=== PATIENT | male | born 1940 | race Caucasian/White ===

== ENCOUNTER 2017-05-09 13:09 | Observation (INO) | payer MEDICARE, BC ==
[~2017-05-09] VITALS: Ht 170.2 cm; Wt 82.1 kg
[~2017-05-09 13:09] MED LIST: ATAC32TA4 PO; ATOR40TA49 PO; NITR.4 SL; PLAV75TA PO; PRIL20CA PO; ST J81CH PO; TAB-TAB PO; VERA120T3 PO; VITA100T65 PO
[2017-05-09] MEDS ORDERED: IOHEXOL 350 MG/ML 10 ML VIAL (for RAD DIAG) IVCONTRAST ONE (13:10)
[2017-05-09 13:12] VITALS: BP 165/87; PULSE 86; RESP 17; TEMP 98.4; O2SAT 96
--- NOTE | 2017-05-09 13:25 | PD ---
Physical Exam Date Seen by Provider: May 09, 2017 Time Seen by Provider: 13:21 Narrative 76 YOWM R HAND DOMINANT. PLAVIX. FELL OFF HORSE SATURDAY. L PROXIMAL HUMERUS FX VS NOTED WAITING FOR BED PLACEMENT Data Data Last Documented VS Vital Signs Date Time Temp Pulse Resp B/P (MAP) Pulse Ox O2 Delivery O2 Flow Rate FiO2 05/09/17 13:12 98.4 86 17 165/87 (113) 96 Room Air MDM Medical Record Reviewed: No Supervised Visit with ALVARADO: Yes Dayron Galo May 09, 2017 13:25
--- NOTE | 2017-05-09 14:09 | RADRPT ---
EXAM DATE/TIME: 05/09/2017 13:47 [facility] COMPARISON: No previous studies available for comparison. INDICATIONS : Left shoulder pain, fell MEDICAL HISTORY : Aneurysm, abdominal. Cardiovascular disease SURGICAL HISTORY : Abdominal aortic aneurysm repair ENCOUNTER: Initial ACUITY: 4 - 6 days PAIN SCORE: 9/10 LOCATION: Right Shoulder FINDINGS: There is a complete fracture of the left proximal humerus with overriding of the metaphysis with resp ect to the humeral head. The humeral head is rotated, however not dislocated. CONCLUSION: Left proximal humeral fracture. Norma Damon MD on May 09, 2017 at 14:07 Board Certified Radiologist. This report was verified electronically.
[2017-05-09] MEDS ORDERED: OMEP20TA PO (15:03)
[2017-05-09] MEDS ORDERED: PLAV75TA29 PO (15:03)
[2017-05-09] MEDS ORDERED: ATAC16TA4 PO (15:03)
[2017-05-09] MEDS ORDERED: VERA1TAB17 PO (15:03)
[2017-05-09] MEDS ORDERED: ASPI81TA11 PO (15:03)
[2017-05-09] MEDS ORDERED: CELE50CA PO (15:03)
[2017-05-09] MEDS ORDERED: MULTTAB67 PO (15:03)
--- NOTE | 2017-05-09 15:04 | PD ---
HPI Chief Complaint: Injury Time Seen by Provider: 14:50 Travel History International Travel<30 days: No Contact w/Intl Traveler<30days: No Traveled to known affect area: No History of Present Illness HPI This is a 76-year-old male and Plavix and aspirin, history of coronary artery disease, stable AAA, hypertension, hyperlipidemia, presents for evaluation of left shoulder pain and lower back pain. He reports that 4 days ago he was in [place] and he was bucked off of a horse. He landed on his left shoulder. He was seen at an emergency room in [place] where CT of the brain and left shoulder x-ray were performed. Left shoulder x-ray revealed a proximal humeral fracture. He was told that the only orthopedist in the [facility] was out of town and when he returned here this morning he came here for further evaluation and likely orthopedic consultation for his injury. He is complaining of left shoulder pain and lower back pain which is aching and constant and worse with movement. He is denying any shortness of breath. He reports that he had slight left-sided neck pain 4 days ago but that has resolved. He denies any abdominal pain, numbness or tingling or weakness in the arms or legs. He was prescribed Percocet but it has been making him nauseous so he has been avoiding it. He has no other complaints at this time. PFSH Past Medical History Hx Anticoagulant Therapy: Yes (plavix) AAA: Yes Arthritis: Yes Cardiac Catheterization: Yes (STENTS PLACED X 2) Cardiovascular Problems: Yes (2 stents/triple AAA repair) Hypertension: Yes Influenza Vaccination: Yes Past Surgical History Abdominal Surgery: Yes (AAA REPAIR) Tonsillectomy: Yes Social History Alcohol Use: Yes (1-2 DRINKS DAILY) Tobacco Use: No Substance Use: No Allergies-Medications (Allergen,Severity, Reaction): Coded Allergies: amoxicillin (Verified Allergy, Intermediate, HIVES / RASH / SKIN PEELING, 05/09/17) Reported Meds & Prescriptions Reported Meds & Active Scripts Active Reported Celebrex (Celecoxib) 50 Mg Cap 50 Mg PO DAILY PRN Verapamil ER 24 HR (Verapamil HCl) 240 Mg Tab 120 Mg PO DAILY Omeprazole 20 Mg Tab 20 Mg PO DAILY Multiple Vitamin 1 Tab 1 Tab PO DAILY Plavix (Clopidogrel Bisulfate) 75 Mg Tab 75 Mg PO DAILY Atacand Hct (Candesartan-Hydrochlorothiazide) 16-12.5 Mg Tab 1 Tab PO DAILY Aspirin EC (Aspirin) 81 Mg Tabdr 81 Mg PO DAILY Review of Systems Except as stated in HPI: all other systems reviewed are Neg Physical Exam Narrative GENERAL: Pleasant well-developed well-nourished male in no acute distress. His vital signs reviewed and found to be reassuring. SKIN: Warm and dry. Large degree of of ecchymosis along the left anterior lateral chest wall and around the left shoulder joint. There is an abrasion to the posterior left elbow. HEAD: Atraumatic. Normocephalic. EYES: Pupils equal and round. No scleral icterus. No injection or drainage. ENT: No nasal bleeding or discharge. Mucous membranes pink and moist. NECK: Trachea midline. No JVD. CARDIOVASCULAR: Regular rate and rhythm. No murmur appreciated. RESPIRATORY: No accessory muscle use. Clear to auscultation. Breath sounds equal bilaterally. GASTROINTESTINAL: Abdomen soft, non-tender, nondistended. Hepatic and splenic margins not palpable. MUSCULOSKELETAL: Tenderness to palpation to the left shoulder joint. The patient is holding his left shoulder in internal rotation in a sling. There is some tenderness to palpation along the lumbar midline spine. No tenderness to palpation along the cervical or thoracic midline spine. No chest wall crepitus. There is some point tenderness to palpation in the posterior left elbow as well as olecranon bursal swelling. Nonerythematous. NEUROLOGICAL: Awake and alert. No obvious cranial nerve deficits. Motor grossly within normal limits. Normal speech. Data Data Last Documented VS Vital Signs Date Time Temp Pulse Resp B/P (MAP) Pulse Ox O2 Delivery O2 Flow Rate FiO2 05/09/17 18:27 73 16 173/78 (109) 96 Room Air 05/09/17 13:12 98.4 Orders Orders Shoulder, Limited(2vws) (05/09/17 13:34) Basic Metabolic Panel (Bmp) (05/09/17 14:57) Complete Blood Count With Diff (05/09/17 14:57) Prothrombin Time / Inr (Pt) (05/09/17 14:57) Act Partial Throm Time (Ptt) (05/09/17 14:57) Ct Thorax/ Chest W Iv Contrast (05/09/17 14:57) Spine, Lumbar - Ltd (Ap & Lat) (05/09/17 ) Iv Access Insert/Monitor (05/09/17 14:57) Tetanus/Diphtheria Tox Adult (Tetanus/Di (05/09/17 15:45) Elbow, Limited (Ap&Lat) (05/09/17 ) Iohexol 350 Inj (Omnipaque 350 Inj) (05/09/17 13:10) Ct Elbow W/O Contrast (05/09/17 ) Ct Shoulder W/O Contrast (05/09/17 ) Morphine Inj (Morphine Inj) (05/09/17 18:30) Ondansetron Inj (Zofran Inj) (05/09/17 18:30) Ice/Cold Pack (05/09/17 18:23) Admit Order (Ed Use Only) (05/09/17 19:04) Labs Laboratory Tests Test 05/09/17 15:40 05/09/17 16:10 White Blood Count 9.5 TH/MM3 Red Blood Count 3.65 MIL/MM3 Hemoglobin 9.9 GM/DL Hematocrit 30.2 % Mean Corpuscular Volume 82.8 FL Mean Corpuscular Hemoglobin 27.1 PG Mean Corpuscular Hemoglobin Concent 32.8 % Red Cell Distribution Width 17.7 % Platelet Count 340 TH/MM3 Mean Platelet Volume 6.8 FL Neutrophils (%) (Auto) 69.9 % Lymphocytes (%) (Auto) 18.1 % Monocytes (%) (Auto) 7.7 % Eosinophils (%) (Auto) 3.5 % Basophils (%) (Auto) 0.8 % Neutrophils # (Auto) 6.6 TH/MM3 Lymphocytes # (Auto) 1.7 TH/MM3 Monocytes # (Auto) 0.7 TH/MM3 Eosinophils # (Auto) 0.3 TH/MM3 Basophils # (Auto) 0.1 TH/MM3 CBC Comment DIFF FINAL Differential Comment Blood Urea Nitrogen 27 MG/DL Creatinine 1.47 MG/DL Random Glucose 98 MG/DL Calcium Level 9.0 MG/DL Sodium Level 138 MEQ/L Potassium Level 3.8 MEQ/L Chloride Level 106 MEQ/L Carbon Dioxide Level 24.6 MEQ/L Anion Gap 7 MEQ/L Estimat Glomerular Filtration Rate 46 ML/MIN Prothrombin Time 10.9 SEC Prothromb Time International Ratio 1.0 RATIO Activated Partial Thromboplast Time 26.8 SEC MDM Medical Decision Making Medical Screen Exam Complete: Yes Emergency Medical Condition: Yes Medical Record Reviewed: Yes Differential Diagnosis Proximal humeral fracture, chest wall contusion, lumbar compression fracture, rib fracture, pneumothorax, hemothorax, vascular injury Narrative Course 76-year-old male presents after being bucked off of a horse 4 days ago with left shoulder pain and lower back pain as well as left elbow pain. On examination he has a large degree of ecchymosis on the anterior left chest wall and left shoulder or the left shoulder x-ray reveals a proximal humeral fracture with shortening. He has some tenderness to palpation along the lumbar spine, some tenderness to palpation to the posterior left elbow. Plan is for CT of the thorax as well as lumbar spine x-ray, left elbow x-ray. CT of the thorax reveals a right middle lobe nodule with additional scarring in the lungs, repeat noncontrast chest CT is suggested in 6 months. The patient be given a copy of the CT report in order to follow-up with his primary care physician regarding this incidental finding. The patient is actually where of this finding and has been monitored for several years. I discussed the results of the imaging studies with on-call orthopedist Dr. Pena who would like CT imaging of the left shoulder and elbow prior to discharge. He reports that the patient has 2 options: The first option is that the patient can be discharged with sling, outpatient follow-up in his office on Saturday or Saturday of next week likely for outpatient surgery. The other option is that the patient can be admitted to medicine service with consultation to orthopedist Dr. Griffin however there are no guarantees at a timely operative repair. I discussed these options in detail with the patient and his and the patient is adamant that he would prefer to be admitted for inpatient orthopedic consultation at this time. He does not want to be discharged to follow-up next week. Therefore the patient will be admitted to the hospitalist group with orthopedic consultation. Diagnosis Primary Impression: Closed fracture of left proximal humerus Qualified Codes: S42.292A - Other displaced fracture of upper end of left humerus, initial encounter for closed fracture Additional Impression: Olecranon bursitis, left elbow Admitting Information Admitting Physician Requests: it Srikanth Luna May 09, 2017 15:04
[2017-05-09] MEDS ORDERED: TETANUS/DIPHTHERIA TOXOID ADULT 0.5 ML VIAL IM ONE (15:45)
[2017-05-09 15:55] LABS: AUTOMATED NEUTROPHIL # 6.6 TH/MM3 (1.8-7.7); BASOPHIL # 0.1 TH/MM3 (0-0.2); BASOPHIL % 0.8 % (0.0-2.0); EOSINOPHIL # 0.3 TH/MM3 (0-0.4); EOSINOPHIL % 3.5 % (0.0-4.0); HEMATOCRIT 30.2 % (39.0-51.0); HEMO FLAGS DIFF FINAL; LYMPH % 18.1 % (9.0-44.0); LYMPHOCYTE # 1.7 TH/MM3 (1.0-4.8); MEAN CELL VOLUME 82.8 FL (80.0-100.0); MEAN CORPUSCULAR HEMOGLOBIN 27.1 PG (27.0-34.0); MEAN CORPUSCULAR HGB CONC 32.8 % (32.0-36.0); MONO % 7.7 % (0.0-8.0); NEUT % 69.9 % (16.0-70.0); PLATELET COUNT 340 TH/MM3 (150-450); RED BLOOD COUNT 3.65 MIL/MM3 (4.50-5.90); RED CELL DISTRIBUTION WIDTH 17.7 % (11.6-17.2); WHITE BLOOD COUNT 9.5 TH/MM3 (4.0-11.0)
--- NOTE | 2017-05-09 16:02 | RADRPT ---
EXAM DATE/TIME: 05/09/2017 15:31 [facility] COMPARISON: No previous studies available for comparison. INDICATIONS : Low back pain, fell MEDICAL HISTORY : Aneurysm, abdominal. Cardiovascular disease SURGICAL HISTORY : Abdominal aortic aneurysm repair ENCOUNTER: Initial ACUITY: 4 - 6 days PAIN SCORE: 0/10 LOCATION: Lumbar spine FINDINGS: No appreciable compression deformities, spondylolisthesis, or spondylolysis is seen. Slight degenera tive changes are seen within the disc space and facets. Chronic atherosclerotic calcifications are se en without any definite aneurysmal dilatations for technique. Aortobiiliac stent is identified. CONCLUSION: Chronic changes. Norma Damon MD on May 09, 2017 at 16:00 Board Certified Radiologist. This report was verified electronically.
--- NOTE | 2017-05-09 16:09 | RADRPT ---
EXAM DATE/TIME: 05/09/2017 15:48 [facility] COMPARISON: No previous studies available for comparison. INDICATIONS : Left elbow pain, thrown from a horse MEDICAL HISTORY : None. SURGICAL HISTORY : None. ENCOUNTER: Initial ACUITY: 1 day PAIN SCORE: 2/10 LOCATION: Left elbow FINDINGS: No definite fractures, or dislocations are identified. No definite lytic or sclerotic lesion is seen . CONCLUSION: Unremarkable study. Norma Damon MD on May 09, 2017 at 16:08 Board Certified Radiologist. This report was verified electronically.
[2017-05-09 16:25] LABS: BICARBONATE 24.6 MEQ/L (21.0-32.0); POTASSIUM 3.8 MEQ/L (3.5-5.1)
[2017-05-09 16:33] LABS: APTT (PATIENT) 26.8 SEC (24.3-30.1); PROTHROMBIN TIME - PATIENT 10.9 SEC (9.8-11.6)
--- NOTE | 2017-05-09 17:45 | RADRPT ---
EXAM DATE/TIME: 05/09/2017 17:20 [facility] COMPARISON: No previous studies available for comparison. INDICATIONS : Chest pains from fall off horse. IV CONTRAST: 75 cc Omnipaque 350 (iohexol) IV RADIATION DOSE: 6.53 CTDIvol (mGy) MEDICAL HISTORY : Cardiovascular disease. SURGICAL HISTORY : Abdominal aortic aneurysm repair. Coronary artery stent. ENCOUNTER: Initial ACUITY: 4 - 6 days PAIN SCALE: 10/10 LOCATION: Left chest TECHNIQUE: Volumetric scanning of the chest was performed. Using automated exposure control and adjustment of t he mA and/or kV according to patient size, radiation dose was kept as low as reasonably achievable to obtain optimal diagnostic quality images. DICOM format image data is available electronically for review and comparison. Follow-up recommendations for detected pulmonary nodules are based at a minimum on nodule size and pa tient risk factors according to Fleischner Society Guidelines. FINDINGS: Approximate 5 mm right middle lobe nodule is present with additional areas of scarring in right middl e lobe and lingula. There is a complex fracture of left proximal humerus which is displaced discussed on the patient's left shoulder radiographs. Coronary artery calcifications are seen typically seen w ith CAD and need to be evaluated clinically. There are atherosclerotic calcifications of the aorta du e to chronic atherosclerotic disease. No definite pneumothorax is seen for technique.There is no pleu ral effusion. No appreciable pathological adenopathy is seen within the mediastinum. CONCLUSION: 1. Right middle lobe nodule with additional scarring in the lungs, repeat noncontrast chest CT is sug gested in 6 months as a conservative follow up. 2. Left proximal humeral fracture. Norma Damon MD on May 09, 2017 at 17:39 Board Certified Radiologist. This report was verified electronically.
[2017-05-09 18:27] VITALS: BP 173/78; PULSE 73; RESP 16; O2SAT 96
[2017-05-09] MEDS ORDERED: ONDANSETRON HCL 4 MG/2 ML VIAL IV PUSH ONE (18:30)
[2017-05-09] MEDS ORDERED: MORPHINE SULFATE 4 MG/ML INJ IV PUSH ONE (18:30)
[2017-05-09] MEDS ORDERED: SODIUM CHLORIDE 0.9% FLUSH 10 ML FLUSH IV FLUSH PRN (20:15)
[2017-05-09] MEDS ORDERED: MORPHINE SULFATE 4 MG/ML INJ IV PUSH PRN (20:15)
[2017-05-09] MEDS ORDERED: NALOXONE HCL 0.4 MG/ML AMP IV PRN (20:15)
--- NOTE | 2017-05-09 20:16 | RADRPT ---
EXAM DATE/TIME: 05/09/2017 19:28 [facility] COMPARISON: ELBOW LEFT LIMITED (AP & LAT), May 09, 2017, 15:48. INDICATIONS : Left elbow pain post fall from horse. RADIATION DOSE: 28.83 CTDIvol (mGy) ; Patient positioning MEDICAL HISTORY : None SURGICAL HISTORY : None. ENCOUNTER: Initial ACUITY: 4 - 6 days PAIN SCALE: 7/10 LOCATION: Left elbow TECHNIQUE: Volumetric scanning of the elbow was performed. Using automated exposure control and adjustment of t he mA and/or kV according to patient size, radiation dose was kept as low as reasonably achievable to obtain optimal diagnostic quality images. DICOM format image data is available electronically for r eview and comparison. FINDINGS: BONES: No evidence of fracture. Alignment is within normal limits. JOINTS: No evidence of joint narrowing or effusion. SOFT TISSUES: Muscles, tendons and neurovascular structures are grossly unremarkable. Stranding subcutaneous soft t issues medially may represent direct contusion. No evidence of mass, organized fluid collection, or f oreign body. CONCLUSION: Soft tissue contusion. No fracture. Pedro Pablo Mc MD on May 09, 2017 at 20:13 Board Certified Radiologist. This report was verified electronically.
--- NOTE | 2017-05-09 20:20 | RADRPT ---
EXAM DATE/TIME: 05/09/2017 19:23 [facility] COMPARISON: SHOULDER LEFT LTD (2VWS), May 09, 2017, 13:47. ELBOW LEFT LIMITED (AP & LAT), May 09 17, 15:48. INDICATIONS : Left shoulder pain post fall from horse. RADIATION DOSE: 16.48 CTDIvol (mGy) MEDICAL HISTORY : None SURGICAL HISTORY : None. ENCOUNTER: Initial ACUITY: 4 - 6 days PAIN SCALE: 7/10 LOCATION: Left shoulder TECHNIQUE: Volumetric scanning of the shoulder was performed. Using automated exposure control and adjustment o f the mA and/or kV according to patient size, radiation dose was kept as low as reasonably achievable to obtain optimal diagnostic quality images. DICOM format image data is available electronically f or review and comparison. FINDINGS: BONES: CT confirms a comminuted displaced fracture through the left humeral head. JOINTS: No evidence of joint narrowing or effusion. SOFT TISSUES: Muscles, tendons, and neurovascular structures are grossly unremarkable. The integrity of the rotato r cuff tendons cannot be reliably evaluated on CT without intra-articular contrast. No evidence of m ass, organized fluid collection, or foreign body. CONCLUSION: 1. Comminuted and displaced fracture through the left humeral head. 2. No associated dislocation. Pedro Pablo Mc MD on May 09, 2017 at 20:15 Board Certified Radiologist. This report was verified electronically.
[2017-05-09] MEDS ORDERED: SODIUM CHLORIDE 0.9% FLUSH 10 ML FLUSH IV FLUSH SCH (21:00)
[2017-05-09 21:17] VITALS: BP 153/70; PULSE 70; RESP 16; O2SAT 97
--- NOTE | 2017-05-09 23:54 | HHI.HP ---
[facility] Tresa Beltran MD Admission Diagnosis left shoulder fracture Diagnoses: Chief Complaint: left shoulder fracture Travel History International Travel<30 Days: No Contact w/Intl Traveler <30 Da: No Traveled to Known Affected Are: No History of Present Illness Written by Cat Strong, acting as scribe for Dr. Suh on 05/09/17 at 23:53. The patient states he got "thrown off of a horse" in [place] on Saturday05/06/17. There was no orthopedic surgeon in the town in [place] so his arm was placed in a sling and he flew home. He was given Percocet which made him nauseated and he stopped it. He denies diarrhea, black or red stool, hematuria, dysuria, syncope, chest pain, or shortness of breath. Severe posterior left shoulder pain. Pain alleviated with IV Morphine, worse with movement. CT head was done in [place] because he takes Plavix. He continued Plavix following fall. Nurse Licensed Practical: Dr. Sargent Review of Systems Except as stated in HPI: all other systems reviewed are Neg Past Family Social History Past Medical History Hypertension CAD s/p stent x 2 AAA s/p repair Intermittently has "irregular heart beat" but denies atrial fibrillation Mellisa fever in childhood Arthritis COPD Denies diabetes mellitus, CHF, asthma, emphysema, liver problems, kidney problems, DVT, PE, CVA, seizures, thyroid problems, cancers, or prostate problems . Past Surgical History Tonsillectomy AAA repair - Dr. Blackwood Cardiac catheterization with stent placement . Reported Medications Reported Meds & Active Scripts Active Reported Celebrex (Celecoxib) 50 Mg Cap 50 Mg PO DAILY PRN Verapamil ER 24 HR (Verapamil HCl) 240 Mg Tab 120 Mg PO DAILY Omeprazole 20 Mg Tab 20 Mg PO DAILY Multiple Vitamin 1 Tab 1 Tab PO DAILY Plavix (Clopidogrel Bisulfate) 75 Mg Tab 75 Mg PO DAILY Atacand Hct (Candesartan-Hydrochlorothiazide) 16-12.5 Mg Tab 1 Tab PO DAILY Aspirin EC (Aspirin) 81 Mg Tabdr 81 Mg PO DAILY . Allergies: Coded Allergies: amoxicillin (Verified Allergy, Intermediate, HIVES / RASH / SKIN PEELING, 05/09/17) Active Ordered Medications Current Medications Tetanus/ Diphtheria Toxoids (Tetanus/ Diphtheria Tox Adult) 0.5 ml ONCE ONCE IM Last administered on 05/09/17 16:07; Start 05/09/17 at 15:45; Stop 05/09/17 at 15:46; Status DC Iohexol (Omnipaque 350 Inj) 75 ml STK-MED ONCE IVCONTRAST ; Start 05/09/17 at 13: 10; Stop 05/09/17 at 17:45; Status DC Morphine Sulfate (Morphine Inj) 4 mg ONCE ONCE IV PUSH Last administered on 18:33; Start 05/09/17 at 18:30; Stop 05/09/17 at 18:31; Status DC Ondansetron HCl (Zofran Inj) 4 mg ONCE ONCE IV PUSH Last administered on 18:33; Start 05/09/17 at 18:30; Stop 05/09/17 at 18:31; Status DC Sodium Chloride (NS Flush) 2 ml UNSCH PRN IV FLUSH FLUSH AFTER USING IV ACCESS ; Start 05/09/17 at 20:15 Sodium Chloride (NS Flush) 2 ml BID IV FLUSH Last administered on 05/09/17 22: 17; Start 05/09/17 at 21:00 Naloxone HCl (Narcan Inj) 0.4 mg UNSCH PRN IV SEE LABEL COMMENTS; Start at 20:15 Morphine Sulfate (Morphine Inj) 2 mg Q3H PRN IV PUSH PAIN >5 Last administered on 05/10/17 00:01; Start 05/09/17 at 20:15 . Family History Heart problems in family Lung problems in brother Sister from CVA, valvular heart disease . Social History Tobacco: quit 40 years ago; smoked 2 ppd previously Alcohol: occasional . Physical Exam Vital Signs Vital Signs Date Time Temp Pulse Resp B/P (MAP) Pulse Ox O2 Delivery O2 Flow Rate FiO2 05/09/17 21:57 05/09/17 21:17 70 16 153/70 (97) 97 Room Air 05/09/17 18:27 73 16 173/78 (109) 96 Room Air 05/09/17 13:12 98.4 86 17 165/87 (113) 96 Room Air Physical Exam GENERAL: This is an elderly male patient in no apparent distress. SKIN: No rashes. Cool and dry. Left upper arm and shoulder with extensive bruising noted. HEAD: Atraumatic. Normocephalic. No temporal or scalp tenderness. EYES: No scleral icterus. No injection or drainage. ENT: Nose without bleeding, purulent drainage. Airway patent. NECK: Trachea midline. No JVD. CARDIOVASCULAR: Regular rate and rhythm without murmurs, gallops, or rubs. RESPIRATORY: Clear to auscultation. Breath sounds equal bilaterally. No wheezes , rales, or rhonchi. GASTROINTESTINAL: Abdomen soft, non-tender, nondistended. MUSCULOSKELETAL: Extremities without clubbing, cyanosis, or edema. No calf tenderness. Left hand with intact sensation, warm. Left shoulder with extensive bruising and swelling. NEUROLOGICAL: Awake and alert. Motor and sensory grossly within normal limits. Normal speech. . Laboratory Laboratory Tests Test 05/09/17 15:40 05/09/17 16:10 White Blood Count 9.5 Red Blood Count 3.65 Hemoglobin 9.9 Hematocrit 30.2 Mean Corpuscular Volume 82.8 Mean Corpuscular Hemoglobin 27.1 Mean Corpuscular Hemoglobin Concent 32.8 Red Cell Distribution Width 17.7 Platelet Count 340 Mean Platelet Volume 6.8 Neutrophils (%) (Auto) 69.9 Lymphocytes (%) (Auto) 18.1 Monocytes (%) (Auto) 7.7 Eosinophils (%) (Auto) 3.5 Basophils (%) (Auto) 0.8 Neutrophils # (Auto) 6.6 Lymphocytes # (Auto) 1.7 Monocytes # (Auto) 0.7 Eosinophils # (Auto) 0.3 Basophils # (Auto) 0.1 CBC Comment DIFF FINAL Differential Comment Blood Urea Nitrogen 27 Creatinine 1.47 Random Glucose 98 Calcium Level 9.0 Sodium Level 138 Potassium Level 3.8 Chloride Level 106 Carbon Dioxide Level 24.6 Anion Gap 7 Estimat Glomerular Filtration Rate 46 Prothrombin Time 10.9 Prothromb Time International Ratio 1.0 Activated Partial Thromboplast Time 26.8 Result Diagram: 05/09/17 1540 05/09/17 1540 Imaging Last Impressions Chest CT 05/09/17 2836 Signed Impressions: Service Date/Time: May 17:20 - CONCLUSION: 1. Right middle lobe nodule with additional scarring in the lungs, repeat noncontrast chest CT is suggested in 6 months as a conservative follow up. 2. Left proximal humeral fracture. Norma Damon MD Shoulder X-Ray 05/09/17 1334 Signed Impressions: Service Date/Time: May 13:47 - CONCLUSION: Left proximal humeral fracture. Norma Damon MD Upper Extremity CT 05/09/17 0000 Signed Impressions: Service Date/Time: , May 09, 2017 19:23 - CONCLUSION: 1. Comminuted and displaced fracture through the left humeral head. 2. No associated dislocation. Pedro Pablo Mc MD Lumbar Spine X-Ray 05/09/17 0000 Signed Impressions: Service Date/Time: , May 09, 2017 15:31 - CONCLUSION: Chronic changes. Norma Damon MD Elbow X-Ray 05/09/17 0000 Signed Impressions: Service Date/Time: May 15:48 - CONCLUSION: Unremarkable study. Norma Damon MD . Caprini VTE Risk Assessment Caprini VTE Risk Assessment: Mod/High Risk (score >= 2) Caprini Risk Assessment Model Point Value = 1 Point Value = 2 Point Value = 3 Point Value = 5 Age 41-60 Minor surgery BMI > 25 kg/m2 Swollen legs Varicose veins or History of unexplained or recurrent spontaneous Oral contraceptives or hormone replacement Sepsis (< 1 month) Serious lung disease, including pneumonia (< 1 month) Abnormal pulmonary function Acute myocardial infarction Congestive heart failure (< 1 month) History of inflammatory bowel disease Medical patient at bed rest Age 61-74 Arthroscopic surgery Major open surgery (> 45 min) Laparoscopic surgery (> 45 min) Malignancy Confined to bed (> 72 hours) Immobilizing plaster cast Central venous access Age >= 75 History of VTE Family history of VTE Factor V Leiden Prothrombin [id number] Lupus anticoagulant Anticardiolipin antibodies Elevated serum homocysteine Heparin-induced thrombocytopenia Other congenital or acquired thrombophilia Stroke (< 1 month) Elective arthroplasty Hip, pelvis, or leg fracture Acute spinal cord injury (< 1 month) Prophylaxis Regimen Total Risk Factor Score Risk Level Prophylaxis Regimen 0-1 Low Early ambulation 2 Moderate Order ONE of the following: *Sequential Compression Device (SCD) *Heparin 5000 units SQ BID 3-4 Higher Order ONE of the following medications: *Heparin 5000 units SQ TID *Enoxaparin/Lovenox 40 mg SQ daily (WT < 150 kg, CrCl > 30 mL/min) *Enoxaparin/Lovenox 30 mg SQ daily (WT < 150 kg, CrCl > 10-29 mL/min) *Enoxaparin/Lovenox 30 mg SQ BID (WT < 150 kg, CrCl > 30 mL/min) AND/OR *Sequential Compression Device (SCD) 5 or more Highest Order ONE of the following medications: *Heparin 5000 units SQ TID (Preferred with Epidurals) *Enoxaparin/Lovenox 40 mg SQ daily (WT < 150 kg, CrCl > 30 mL/min) *Enoxaparin/Lovenox 30 mg SQ daily (WT < 150 kg, CrCl > 10-29 mL/min) *Enoxaparin/Lovenox 30 mg SQ BID (WT < 150 kg, CrCl > 30 mL/min) AND *Sequential Compression Device (SCD) Assessment and Plan Problem List: (1) Closed fracture of left proximal humerus ICD Code: S42.202A - Unspecified fracture of upper end of left humerus, initial encounter for closed fracture Status: Acute (2) CAD (coronary artery disease) ICD Code: I25.10 - Atherosclerotic heart disease of [place] coronary artery without angina pectoris Status: Chronic (3) COPD (chronic obstructive pulmonary disease) ICD Code: J44.9 - Chronic obstructive pulmonary disease, unspecified Status: Chronic (4) Acute renal insufficiency ICD Code: N28.9 - Disorder of kidney and ureter, unspecified Status: Acute Assessment and Plan 76 y/o thrown from a horse on 05/06/17 presents with left proximal humerus fracture for possible surgical repair: Left proximal humeral fracture - consult orthopedic surgeon - Morphine 2 mg IV prn pain - NPO for possible surgical repair in a.m. CAD s/p stenting - resume home medications - continuous cardiac telemetry to monitor for arrhythmias COPD - Duo-nebulizers q4h PRN SOB/Wheezing - start supplemental oxygen if needed Acute renal insufficiency - monitor bmp - follow trends in renal indices - avoid nephrotoxins DVT prophylaxis - SCDs/TEDs . This note was transcribed by bro [Cat Strong]. IDr. Joi personally performed the history, physical exam, and medical decision making; and confirmed the accuracy of the information in the transcribed note. Authenticated by Dr. Joi Suh on 05/09/17 at 23:53. Discussed Condition With ER physician and patient . Problem Qualifiers (1) Closed fracture of left proximal humerus: Qualified Codes: S42.292A - Other displaced fracture of upper end of left humerus, initial encounter for closed fracture Cat Strong May 09, 2017 23:54 Joi Suh MD May 12, 2017 23:46
[2017-05-10] VITALS: BP 127/58; PULSE 81; RESP 16; TEMP 97; O2SAT 95
[2017-05-10 04:00] VITALS: BP 129/60; PULSE 78; RESP 16; TEMP 98.2; O2SAT 95
[2017-05-10] MEDS ORDERED: GENTAMICIN SULFATE 80 MG/2 ML VIAL ONE (07:09)
[2017-05-10] MEDS ORDERED: VANCOMYCIN HCL 1000 MG VIAL ONE (07:09)
[2017-05-10] MEDS ORDERED: SODIUM CHLOR 0.9% 250 ML INJ 250 ML ONE (07:10)
[2017-05-10] MEDS ORDERED: ACETAMINOPHEN 1000 MG/100 ML 100 ML IV ONE (07:29)
[2017-05-10] MEDS ORDERED: CLINDAMYCIN PHOS 600 MG/4 ML VIAL ONE (07:51)
[2017-05-10] MEDS: HYDROCHLOROTHIAZIDE 12.5 MG CAP PO SCH (09:00)
[2017-05-10] MEDS: LOSARTAN 50 MG TAB PO SCH (09:00)
[2017-05-10] MEDS: VERAPAMIL HCL 120 MG SUSTAINED RELEASE TAB PO SCH (09:00)
[2017-05-10] MEDS: PANTOPRAZOLE SOD 20 MG DELAYED RELEASE TAB PO SCH (09:00)
[2017-05-10] MEDS ORDERED: HYDR-3288 PO (09:04)
--- NOTE | 2017-05-10 09:06 | PD.OP ---
cc: Sixto Griffin MD Operative Report Date of Surgery: May 10, 2017 Preoperative Diagnosis: Comminuted displaced left proximal humerus fracture Postoperative Diagnosis: Procedure: Open reduction internal fixation left proximal humerus Anesthesia: Gen. Surgeon: Sixto Griffin Gyroscope Repairer(s): BRIGETTE Davis PA-C The surgical procedure was assisted by my physician school health assistant. My P.A. presence was necessary throughout this case for the manipulation and positioning of the surgical extremity. My P.A. was assisting me throughout the duration of this procedure. The skill set of a physician school health assistant was medically necessary to complete this procedure. During the surgical case the distribution field technician was working at the back table and the physician school health assistant was directly assisting me. Operation and Findings: Patient was seen and evaluated preoperatively. Patient was found to have a displaced left proximal humerus fracture. The risks and benefits of surgical and nonsurgical options were discussed in detail and informed consent was obtained for surgery. Patient was brought to the operating room and placed on or table. IV sedation and GETA were administered by anesthesiologist. Antibiotics were given prior to incision. Operative arm and shoulder were prepped with alcohol followed by Hibiclens and draped usual sterile fashion. Timeout procedure was performed. Procedure began with a 5 inch incision over the anterior shoulder. Cephalic vein was identified. A deltopectoral approach was utilized. The fracture was now visualized. Soft tissue was retracted. #2 FiberWire sutures were placed into the rotator rotator cuff and greater tuberosity and through the lesser tuberosity and subscapularis tendon. Attention was now turned to reduction. Gentle traction was applied. The humeral shaft was reduced to the humeral head. Fracture was manipulated to achieve excellent reduction. Multiplanar fluoroscopy confirmed well aligned fracture. Multiple K wires were used to hold provisional fixation. A Synthes proximal humerus plate was selected. Plate was provisionally held in place K wires. 3.5 cortical screws were used to compress plate to bone. Fluoroscopy confirmed appropriate plate placement and fracture reduction. Multiple locking screws were now placed in the humeral head. Screws were predrilled and premeasured for appropriate length. Care was taken not to penetrate the articular surface. Additional screws were placed in the humeral shaft. The FiberWire suture was passed through the holes of the plate and sutured to the plate for additional stability. Final fluoroscopy revealed well aligned fracture with well-placed hardware. Wound was thoroughly irrigated. Fascia was closed with #1 Vicryl, subcutaneous tissues closed with 3 -0 Vicryl, and skin was closed with [place]ol[place]. Sterile dressings were applied. Patient was placed into a sling. Patient was awakened and transferred to recovery in stable condition. Needle and sponge counts were correct. Sixto Griffin MD May 10, 2017 09:06
[2017-05-10] MEDS ORDERED: MORPHINE SULFATE 4 MG/ML INJ IV PUSH PRN (09:15)
[2017-05-10] MEDS ORDERED: diphenhydrAMINE HCL 25 MG CAP PO PRN (09:15)
[2017-05-10] MEDS ORDERED: SODIUM CHLORIDE 0.9% FLUSH 5 ML FLUSH IVF PRN (09:15)
[2017-05-10] MEDS ORDERED: ONDANSETRON HCL 4 MG/2 ML VIAL IVP PRN (09:15)
[2017-05-10] MEDS ORDERED: ceFAZolin 2 GM PREMIX 50 ML IV SCH (09:15)
[2017-05-10] MEDS ORDERED: DO NOT ADM ANY ANTICOAGULANT DRUGS PRN (09:34)
--- NOTE | 2017-05-10 09:34 | RADRPT ---
EXAM DATE/TIME: 05/10/2017 08:51 [facility] COMPARISON: No previous studies available for comparison. INDICATIONS : Left shoulder open reduction internal fixation. MEDICAL HISTORY : None. SURGICAL HISTORY : None. ENCOUNTER: Subsequent ACUITY: 1 day PAIN SCORE: Non-responsive. LOCATION: Left shoulder FINDINGS: Side plate and multiple screws traverse the proximal humerus with excellent anatomical alignment of t he fracture fragments. CONCLUSION: Intact postsurgical changes for technique. Norma Damon MD on May 10, 2017 at 9:32 Board Certified Radiologist. This report was verified electronically.
[2017-05-10] MEDS ORDERED: *morphine SULFATE 8 MG/ML PERIprocedure ONLY ONE ×3 (09:42→10:13)
--- NOTE | 2017-05-10 10:29 | MB ---
cc: FERNANDA ROBLES DATE OF CONSULTATION 05/10/2017 REASON FOR CONSULTATION Comminuted left proximal humerus fracture. CONSULTING PHYSICIAN Dr. Suh GAEL Thorne is a 76-year male who was out in [place]. He was [place] horse [place]. He was thrown off the horse and landed on his left arm. He had immediate left shoulder pain. He was taken to a hospital in [place] where x-rays revealed a comminuted left shoulder fracture. There was no orthopedic surgeon available at that time. He subsequently got on a plane and flew home. He presented straight to [facility] upon arrival to [place]. He complains of left shoulder pain. Pain is worse with movement. Pain is improved with rest. He denies any loss of consciousness. PAST MEDICAL HISTORY ILLNESSES 1. Hypertension 2. Coronary artery disease 3. Abdominal aortic aneurysm 4. Arthritis 5. COPD SURGERIES 1. Tonsillectomy 2. AAA repair 3. Cardiac catheterization with stent placement. MEDICATIONS Medications include: 1. Celebrex 2. Verapamil 3. Omeprazole 4. Plavix 5. Atacand 6. Aspirin ALLERGIES AMOXICILLIN FAMILY HISTORY Positive for lung problems in a brother and a CVA in a sister. SOCIAL HISTORY The patient quit smoking 40 years ago. He drinks alcohol occasionally. REVIEW OF SYSTEMS The patient denies headache, visual changes, neck pain, chest pain, shortness of breath, abdominal pain, nausea, vomiting or recent weight loss, numbness or tingling of his extremities. He complains of left shoulder pain. Pain is worse with movement. PHYSICAL EXAMINATION The patient is a pleasant 76-year male in no acute distress. He is awake and alert. He is alert and oriented x3. VITAL SIGNS: Temperature 98.2, pulse 78, respirations 16, blood pressure 129/60, O2 sat 95% on room air. HEAD: The patient is normocephalic. EYES: Pupils are equal. NECK: Soft and nontender. Trachea is midline. ABDOMEN: Soft, nontender and nondistended. EXTREMITIES: Examination of the left arm reveals significant swelling and bruising around his shoulder. He has pain with any shoulder motion. He has no tension around his elbow, wrist or fingers. He has intact sensation in all fingers. Radial pulses palpable. Examination of the right arm reveals no pain with shoulder, elbow or wrist motion. Skin is intact. Radial pulses palpable. Skin is intact. Examination of lower extremities reveals no pain with hip, knee or ankle motion. Skin is intact to both feet. Dorsalis pedis pulses palpable. X-RAYS X-rays and CT scan of the left shoulder were reviewed. The patient has a comminuted left proximal humerus fracture. IMPRESSION 1. Displaced comminuted left proximal humerus fracture. 2. Coronary artery disease 3. Hypertension PLAN Treatment options were discussed with the patient. At this point, would recommend open reduction, internal fixation of the left proximal humerus. The risks of surgery include bleeding, infection, injury to arteries, nerves and blood vessels, nonunion, malunion, avascular necrosis, need for shoulder replacement, as well as medical complications including blood clot, stroke, heart attack and . All questions were answered. I will plan on surgery today. A mid-level provider in my office, nurse practitioner or PA, may see this patient on a follow-up basis and continue to implement the objective of this plan including: Starting or adjusting medications, injections of muscle, tendon, bursa or joints, cast application, orthotic or brace application, physical therapy, further radiographic studies including x-ray, MRI, CT, ultrasounds or bone scan, vascular studies, neurologic studies, or other specialist consultations, and proceeding with surgical management as appropriate. MD YAMILE Yuan/REECE /9:07 AM /10:15 AM
[2017-05-10 10:47] VITALS: BP 131/63; PULSE 65; RESP 16; TEMP 96.7; O2SAT 98
--- NOTE | 2017-05-10 11:35 | EKG ---
Date Performed: 05/09/2017 Time Performed: 22:40:11 PTAGE: 76 years EKG: Sinus rhythm NONSPECIFIC T-WAVE ABNORMALITY BORDERLINE ECG PREVIOUS TRACING : 03/20/2016 18.00 No significant change from previous tracing noted. DOCTOR: Cristian Bonilla Interpretating Date/Time 05/10/2017 11:34:00
--- NOTE | 2017-05-10 11:42 | HHI.FF ---
Face to Face Verification Diagnosis: (1) Closed fracture of left proximal humerus Occupational Therapy Left UE Weight Bearing: Non WB Left UE Range of Motion: Pendular Nursing Dressing Changes: Daily dressing change, Xeroform, Coverderm/Primapore I have seen patient Mati Mejia on 05/10/17. My clinical findings support the need for the requested home health care services because: Limited ability to care for self I certify that my clinical findings support that this patient is homebound because: Post-op weakness Milton Garvey Jr. May 10, 2017 11:42
--- NOTE | 2017-05-10 11:44 | PD.ORT.PN ---
Subjective Subjective Remarks Left proximal humerus fracture injured 4 days ago and . He was thrown from a horse. Objective Vitals Vital Signs Date Time Temp Pulse Resp B/P (MAP) Pulse Ox O2 Delivery O2 Flow Rate FiO2 05/10/17 10:15 63 16 138/88 (105) 98 Nasal Cannula 2 05/10/17 10:00 60 16 121/59 (79) 94 Nasal Cannula 2 05/10/17 09:55 16 05/10/17 09:55 16 05/10/17 09:45 61 16 119/57 (77) 95 Nasal Cannula 2 05/10/17 09:30 73 16 117/55 (75) 97 Nasal Cannula 2 05/10/17 09:28 98.4 78 16 116/53 (74) 92 Nasal Cannula 2 05/10/17 04:00 98.2 78 16 129/60 (83) 95 05/10/17 00:00 97.0 81 16 127/58 (81) 95 05/09/17 21:57 05/09/17 21:17 70 16 153/70 (97) 97 Room Air 05/09/17 18:27 73 16 173/78 (109) 96 Room Air 05/09/17 13:12 98.4 86 17 165/87 (113) 96 Room Air I/O 05/09/17 05/09/17 05/09/17 05/10/17 05/10/17 05/10/17 07:00 15:00 23:00 07:00 15:00 23:00 Intake Total 0 ml 1300 ml Output Total 200 ml Balance 0 ml 1100 ml Intake Oral 0 ml Other 1300 ml Output Estimated Blood Loss 200 ml # Voids 1 Result Diagram: 05/09/17 1540 05/09/17 1540 Other Results Laboratory Tests Test 05/09/17 16:10 Prothromb Time International Ratio 1.0 RATIO Prothrombin Time 10.9 SEC (9.8-11.6) Imaging Last 24 hours Impressions Shoulder X-Ray 05/10/17 0000 Signed Impressions: Service Date/Time: Wednesday, May 10, 2017 08:51 - CONCLUSION: Intact postsurgical changes for technique. Norma Damon MD Chest CT 05/09/17 1457 Signed Impressions: Service Date/Time: May 17:20 - CONCLUSION: 1. Right middle lobe nodule with additional scarring in the lungs, repeat noncontrast chest CT is suggested in 6 months as a conservative follow up. 2. Left proximal humeral fracture. Norma Damon MD Shoulder X-Ray 05/09/17 1334 Signed Impressions: Service Date/Time: , May 09, 2017 13:47 - CONCLUSION: Left proximal humeral fracture. Norma Damon MD Objective Remarks Left upper extremity: Clean dry dressings intact. Swelling improves and present. He has intact sensation of the radial ulnar median nerve distributions with good capillary refills. He is able extend fingers and make a fist. He is in a sling and swath Assessment & Plan Assessment and Plan Left proximal humerus fracture status post ORIF POD 0 Nonweightbearing left upper extremity Occupational therapy for pendulum swings only Daily dressing changes with home health care. Change of dressing prior to discharge. Xeroform and Primapore Plan for discharge on 05/11/2017 if cleared by physical therapy and medically cleared Follow-up with Dr. Griffin or PA in 2 weeks Milton Garvey Jr. May 10, 2017 11:44
[2017-05-10] MEDS ORDERED: ERGOCALCIFEROL (VIT D2) 50,000 UNIT CAP PO SCH (12:00)
[2017-05-10] MEDS: ACETAMINOPHEN/HYDROcodone 325 MG/7.5 MG TAB PO PRN ×2 (12:46→19:29)
[2017-05-10] MEDS: CALCIUM/VITAMIN D 250 MG/125 U TAB PO SCH ×2 (12:46→16:21)
--- NOTE | 2017-05-10 13:09 | HHI.PR ---
Subjective Remarks Follow up on patient with comminuted left proximal humerus fracture status, CAD , COPD, VANCE. Patient seen and examined. Patient s/p ORIF left proximal humerus fracture earlier this morning. Patient reports pain is currently at 4. He denies any other complaints. Denies any fever or chills. Denies any chest pain or shortness of breath. Denies any nausea, vomiting or abdominal pain. Objective Vitals Vital Signs Date Time Temp Pulse Resp B/P (MAP) Pulse Ox O2 Delivery O2 Flow Rate FiO2 05/10/17 10:15 63 16 138/88 (105) 98 Nasal Cannula 2 05/10/17 10:00 60 16 121/59 (79) 94 Nasal Cannula 2 05/10/17 09:55 16 05/10/17 09:55 16 05/10/17 09:45 61 16 119/57 (77) 95 Nasal Cannula 2 05/10/17 09:30 73 16 117/55 (75) 97 Nasal Cannula 2 05/10/17 09:28 98.4 78 16 116/53 (74) 92 Nasal Cannula 2 05/10/17 04:00 98.2 78 16 129/60 (83) 95 05/10/17 00:00 97.0 81 16 127/58 (81) 95 05/09/17 21:57 05/09/17 21:17 70 16 153/70 (97) 97 Room Air 05/09/17 18:27 73 16 173/78 (109) 96 Room Air 05/09/17 13:12 98.4 86 17 165/87 (113) 96 Room Air I/O 05/09/17 05/09/17 05/09/17 05/10/17 05/10/17 05/10/17 07:00 15:00 23:00 07:00 15:00 23:00 Intake Total 0 ml 1300 ml Output Total 200 ml Balance 0 ml 1100 ml Intake Oral 0 ml Other 1300 ml Output Estimated Blood Loss 200 ml # Voids 1 Result Diagram: 05/09/17 1540 05/09/17 1540 Imaging Last Impressions Shoulder X-Ray 05/10/17 0000 Signed Impressions: Service Date/Time: Wednesday, May 10, 2017 08:51 - CONCLUSION: Intact postsurgical changes for technique. K. Doug Damon MD Chest CT 05/09/17 0257 Signed Impressions: Service Date/Time: May 17:20 - CONCLUSION: 1. Right middle lobe nodule with additional scarring in the lungs, repeat noncontrast chest CT is suggested in 6 months as a conservative follow up. 2. Left proximal humeral fracture. Norma Damon MD Upper Extremity CT 05/09/17 0000 Signed Impressions: Service Date/Time: May 19:23 - CONCLUSION: 1. Comminuted and displaced fracture through the left humeral head. 2. No associated dislocation. Pedro Pablo Mc MD Lumbar Spine X-Ray 05/09/17 0000 Signed Impressions: Service Date/Time: , May 09, 2017 15:31 - CONCLUSION: Chronic changes. Norma Damon MD Elbow X-Ray 05/09/17 0000 Signed Impressions: Service Date/Time: , May 09, 2017 15:48 - CONCLUSION: Unremarkable study. Norma Damon MD Objective Remarks GENERAL: This is an elderly male patient in no apparent distress. Awake and alert. Appears comfortable. SKIN: No rashes. Cool and dry. Left shoulder in postoperative dressing and sling. HEAD: Atraumatic. Normocephalic. EYES: EOMI. No scleral icterus. No injection or drainage. ENT: Nose without bleeding, purulent drainage. Airway patent. MMM. NECK: Trachea midline. Supple. CARDIOVASCULAR: Regular rate and rhythm without murmurs, gallops, or rubs. RESPIRATORY: Clear to auscultation anteriorly. Breath sounds equal bilaterally. No wheezes, rales, or rhonchi. GASTROINTESTINAL: Abdomen soft, non-tender, nondistended. MUSCULOSKELETAL: Extremities without clubbing, cyanosis, or edema. No calf tenderness. LUE in sling. ROM not tested. N/V intact distally. NEUROLOGICAL: Awake and alert. Motor and sensory grossly within normal limits. Normal speech. Medications and IVs Current Medications Medications (Trade) Dose Ordered Sig/Mart Route Start Time Stop Time Status Last Admin (Narcan Inj) 0.4 mg UNSCH PRN IV 05/09/17 20:15 (Morphine Inj) 2 mg Q3H PRN IV PUSH 05/09/17 20:15 05/10/17 00:01 (Isoptin Sr) 120 mg DAILY PO 05/10/17 09:00 (Microzide) 12.5 mg DAILY PO 05/10/17 09:00 (Protonix) 20 mg DAILY PO 05/10/17 09:00 (Cozaar) 50 mg DAILY PO 05/10/17 09:00 (NS Flush) 2 ml UNSCH PRN IVF 05/10/17 09:15 (NS Flush) 2 ml BID IVF 05/10/17 21:00 (Laura-Colace) 1 tab BID PO 05/10/17 21:00 ([place] 7.5-325 Mg) 1 tab Q3H PRN PO 05/10/17 09:15 05/10/17 12:46 (Zofran Inj) 4 mg Q4H PRN IVP 05/10/17 09:15 (Oscal-D 250-125) 250 mg TID PO 05/10/17 13:00 05/10/17 12:46 (Benadryl) 25 mg Q6H PRN PO 05/10/17 09:15 (Morphine Inj) 4 mg Q3H PRN IV PUSH 05/10/17 09:15 (Drisdol) 50,000 units Q7D PO 05/10/17 12:00 05/10/17 12:46 (Vitamin D3) 1,000 units DAILY PO 05/11/17 09:00 Miscellaneous Information ALL NURSING DEPARTME... UNSCH PRN .XX 05/10/17 09:34 05/11/17 09:33 Clindamycin Phosphate 600 mg/ Sodium Chloride 104 ml @ 208 mls/hr Q8H IV 05/10/17 16:00 05/11/17 08:29 A/P Problem List: (1) Closed fracture of left proximal humerus ICD Code: S42.202A - Unspecified fracture of upper end of left humerus, initial encounter for closed fracture Status: Acute (2) CAD (coronary artery disease) ICD Code: I25.10 - Atherosclerotic heart disease of [place] coronary artery without angina pectoris Status: Chronic (3) COPD (chronic obstructive pulmonary disease) ICD Code: J44.9 - Chronic obstructive pulmonary disease, unspecified Status: Chronic (4) Acute renal insufficiency ICD Code: N28.9 - Disorder of kidney and ureter, unspecified Status: Acute Assessment and Plan 76 y/o thrown from a horse on 05/06/17 presents with left proximal humerus fracture for possible surgical repair: Left proximal humeral fracture - Orthopedic surgeon consulted, appreciate their assistance. S/p ORIF. Nonweightbearing LUE. OT as ordered by Ortho team. Daily dressing changes with [facility]. - Clerm[place] and Morphine 4mg IV prn pain CAD s/p stenting AAA s/p repair HTN - BP controlled - no complaints of chest pain at present - continue home medications Verapamil ER and Atacand HCT - resume ASA and Plavix in the am if okay with Ortho - monitor vital signs COPD, not in acute exacerbation - Duo-nebulizers q4h PRN SOB/Wheezing - continue supplemental oxygen if needed - monitor respiratory status Acute renal insufficiency - unknown baseline - monitor bmp - today's lab pending. May need to hold antihypertensive. - follow trends in renal indices - avoid nephrotoxins Anemia - likely 2/2 anemia of acute blood loss from injury - repeat labs pending to monitor trend Right middle lobe nodule - incidental finding. Recommend repeat noncontrast chest CT in 6 mos DVT prophylaxis - SCDs/TEDs Discussed with patient, and Dr. Miller Attending Statement The exam, history, and the medical decision-making described in the above note were completed with the assistance of the mid-level provider. I reviewed and agree with the findings presented. I attest that I had a [id number] encounter with the patient on the same day, and personally performed and documented my assessment and findings in the medical record. Patient seen and examined, complain of heartburn, is usually on omeprazole resume that in the morning and order Tums for now Patient has been on aspirin and Plavix for his heart stent, mostly the bare- metal stent, we'll resume those in a.m. if okay with ortho Problem Qualifiers (1) Closed fracture of left proximal humerus: Qualified Codes: S42.292A - Other displaced fracture of upper end of left humerus, initial encounter for closed fracture Leyda Fernandez May 10, 2017 13:09 Rich Miller MD May 10, 2017 19:43
[2017-05-10] MEDS ORDERED: PHENYLEPH/NS 1000 MCG/10 ML SYR IV ONE (13:40)
[2017-05-10] MEDS ORDERED: MORPHINE SULFATE 4 MG/ML INJ IV ONE (13:40)
[2017-05-10] MEDS ORDERED: NEOSTIGMINE 3 MG/3 ML SYR IV ONE (13:40)
[2017-05-10] MEDS ORDERED: ONDANSETRON HCL 4 MG/2 ML VIAL IV PUSH ONE (13:40)
[2017-05-10] MEDS ORDERED: SODIUM CHLOR 0.9% 250 ML INJ 500 ML IV ONE (13:40)
[2017-05-10] MEDS ORDERED: PROPOFOL 200 MG/20 ML AMP IV ONE (13:40)
[2017-05-10] MEDS ORDERED: ePHEDrine/NS 25 MG/5 ML SYR IV ONE (13:40)
[2017-05-10 16:00] VITALS: BP 125/70; PULSE 72; RESP 16; TEMP 97.2; O2SAT 98
[2017-05-10] MEDS: CLINDAMYCIN 600 MG/NS 100 ML IV SCH ×4 (16:21→23:38)
[2017-05-10 17:36] LABS: AUTOMATED NEUTROPHIL # 5.3 TH/MM3 (1.8-7.7); BASOPHIL # 0.1 TH/MM3 (0-0.2); BASOPHIL % 0.7 % (0.0-2.0); EOSINOPHIL # 0.3 TH/MM3 (0-0.4); HEMATOCRIT 24.9 % (39.0-51.0); HEMO FLAGS DIFF FINAL; LYMPH % 19.1 % (9.0-44.0); LYMPHOCYTE # 1.5 TH/MM3 (1.0-4.8); MEAN CORPUSCULAR HGB CONC 34.9 % (32.0-36.0); MONO % 7.8 % (0.0-8.0); NEUT % 68.4 % (16.0-70.0); PLATELET COUNT 293 TH/MM3 (150-450); RED BLOOD COUNT 2.99 MIL/MM3 (4.50-5.90); RED CELL DISTRIBUTION WIDTH 17.5 % (11.6-17.2); WHITE BLOOD COUNT 7.7 TH/MM3 (4.0-11.0)
[2017-05-10 18:05] LABS: BICARBONATE 25.5 MEQ/L (21.0-32.0); POTASSIUM 3.9 MEQ/L (3.5-5.1)
[2017-05-10] MEDS: SODIUM CHLORIDE 0.9% FLUSH 5 ML FLUSH IVF SCH (19:29)
[2017-05-10] MEDS: DOCUSATE SODIUM 50 MG/SENNA 8.6 MG TAB PO SCH (19:29)
[2017-05-10] MEDS: CALCIUM CARBONATE 500 MG CHEWABLE TAB PO PRN (19:39)
[2017-05-10 20:00] VITALS: BP 148/69; PULSE 71; RESP 17; TEMP 97.1; O2SAT 96
[2017-05-10] MEDS: CALCIUM CARBONATE 500 MG CHEWABLE TAB CHEW SCH (20:21)
[2017-05-10 21:20] VITALS: O2SAT 96
[2017-05-11 00:14] VITALS: BP 144/72; PULSE 78; RESP 16; TEMP 96.7; O2SAT 97
[2017-05-11] MEDS ORDERED: ACETAMINOPHEN 325 MG TAB PO PRN (01:45)
[2017-05-11 04:00] VITALS: BP 146/72; PULSE 81; RESP 16; TEMP 98.3; O2SAT 98
[2017-05-11] MEDS: ACETAMINOPHEN/HYDROcodone 325 MG/7.5 MG TAB PO PRN ×3 (05:42→12:03)
[2017-05-11 08:00] VITALS: BP 147/78; PULSE 86; RESP 17; TEMP 96.4; O2SAT 92
--- NOTE | 2017-05-11 08:07 | PD.ORT.PN ---
Objective Vitals Vital Signs Date Time Temp Pulse Resp B/P (MAP) Pulse Ox O2 Delivery O2 Flow Rate FiO2 05/11/17 04:00 98.3 81 16 146/72 (96) 98 05/11/17 00:14 96.7 78 16 144/72 (96) 97 05/10/17 21:20 96 Nasal Cannula 2.00 05/10/17 20:00 97.1 71 17 148/69 (95) 96 05/10/17 16:00 97.2 72 16 125/70 (88) 98 05/10/17 10:47 96.7 65 16 131/63 (85) 98 05/10/17 10:15 63 16 138/88 (105) 98 Nasal Cannula 2 05/10/17 10:00 60 16 121/59 (79) 94 Nasal Cannula 2 05/10/17 09:55 16 05/10/17 09:55 16 05/10/17 09:45 61 16 119/57 (77) 95 Nasal Cannula 2 05/10/17 09:30 73 16 117/55 (75) 97 Nasal Cannula 2 05/10/17 09:28 98.4 78 16 116/53 (74) 92 Nasal Cannula 2 I/O 05/10/17 05/10/17 05/10/17 05/11/17 05/11/17 05/11/17 07:00 15:00 23:00 07:00 15:00 23:00 Intake Total 0 ml 1780 ml 720 ml 480 ml Output Total 200 ml 450 ml Balance 0 ml 1580 ml 720 ml 30 ml Intake Oral 0 ml 480 ml 720 ml 480 ml Other 1300 ml Output Urine Total 450 ml Estimated Blood Loss 200 ml # Voids 1 1 2 1 # Bowel Movements 0 Result Diagram: 05/10/17 1726 05/10/17 1726 Imaging Last 24 hours Impressions Shoulder X-Ray 05/10/17 0000 Signed Impressions: Service Date/Time: Wednesday, May 10, 2017 08:51 - CONCLUSION: Intact postsurgical changes for technique. Norma Damon MD Chest CT 05/09/17 1457 Signed Impressions: Service Date/Time: May 17:20 - CONCLUSION: 1. Right middle lobe nodule with additional scarring in the lungs, repeat noncontrast chest CT is suggested in 6 months as a conservative follow up. 2. Left proximal humeral fracture. Norma Damon MD Shoulder X-Ray 05/09/17 0508 Signed Impressions: Service Date/Time: May 13:47 - CONCLUSION: Left proximal humeral fracture. Norma Damon MD Objective Remarks Left upper extremity: Dressing clean dry dressings intact. Swelling improves and present. He has intact sensation of the radial ulnar median nerve distributions with good capillary refills. He is able extend fingers and make a fist. He is in a sling and swath Assessment & Plan Assessment and Plan Left proximal humerus fracture status post ORIF POD 1 Nonweight bearing left upper extremity Pendulum swings only Daily dressing changes with home health care. Change of dressing prior to discharge. Xeroform and Primapore Discharge today after cleared by physical therapy and medically cleared Follow-up with Dr. Griffin or [place] in 2 weeks Mati Powers MD May 11, 2017 08:07
[2017-05-11] MEDS: CLINDAMYCIN 600 MG/NS 100 ML IV SCH ×2 (08:33)
[2017-05-11] MEDS: VERAPAMIL HCL 120 MG SUSTAINED RELEASE TAB PO SCH (08:33)
[2017-05-11] MEDS: HYDROCHLOROTHIAZIDE 12.5 MG CAP PO SCH (08:33)
[2017-05-11] MEDS: CALCIUM/VITAMIN D 250 MG/125 U TAB PO SCH ×2 (08:34→12:02)
[2017-05-11] MEDS: CALCIUM CARBONATE 500 MG CHEWABLE TAB CHEW SCH (08:34)
[2017-05-11] MEDS: LOSARTAN 50 MG TAB PO SCH (08:34)
[2017-05-11] MEDS: PANTOPRAZOLE SOD 20 MG DELAYED RELEASE TAB PO SCH (08:34)
[2017-05-11] MEDS: DOCUSATE SODIUM 50 MG/SENNA 8.6 MG TAB PO SCH (08:35)
[2017-05-11] MEDS: SODIUM CHLORIDE 0.9% FLUSH 5 ML FLUSH IVF SCH (08:48)
[2017-05-11] MEDS ORDERED: ASPIRIN EC 81 MG TABEC PO SCH (09:00)
[2017-05-11] MEDS ORDERED: CLOPIDOGREL 75 MG TAB PO SCH (09:00)
[2017-05-11] MEDS ORDERED: CHOLECALCIFEROL (VIT D3) 1000 UNIT TAB PO SCH (09:00)
--- NOTE | 2017-05-11 10:01 | HHI.PR ---
Subjective Remarks Follow up on patient with comminuted left proximal humerus fracture status, CAD , COPD, VANCE. Patient seen and examined today, lying in bed comfortably in nad, at bedside. Patient denies any new acute complaints overnight. Has been ambulating with assistance to the bathroom. Stable on feet. Tolerating PO intake , occasional nausea with pain medication, denies vomiting. Pain well controlled. Splint in place. Eager to get home. Objective Vitals Vital Signs Date Time Temp Pulse Resp B/P (MAP) Pulse Ox O2 Delivery O2 Flow Rate FiO2 05/11/17 08:00 96.4 86 17 147/78 (101) 92 05/11/17 04:00 98.3 81 16 146/72 (96) 98 05/11/17 00:14 96.7 78 16 144/72 (96) 97 05/10/17 21:20 96 Nasal Cannula 2.00 05/10/17 20:00 97.1 71 17 148/69 (95) 96 05/10/17 16:00 97.2 72 16 125/70 (88) 98 05/10/17 10:47 96.7 65 16 131/63 (85) 98 05/10/17 10:15 63 16 138/88 (105) 98 Nasal Cannula 2 05/10/17 10:00 60 16 121/59 (79) 94 Nasal Cannula 2 I/O 05/10/17 05/10/17 05/10/17 05/11/17 05/11/17 05/11/17 07:00 15:00 23:00 07:00 15:00 23:00 Intake Total 0 ml 1780 ml 720 ml 480 ml Output Total 200 ml 450 ml Balance 0 ml 1580 ml 720 ml 30 ml Intake Oral 0 ml 480 ml 720 ml 480 ml Other 1300 ml Output Urine Total 450 ml Estimated Blood Loss 200 ml # Voids 1 1 2 1 # Bowel Movements 0 Result Diagram: 05/10/17 1726 05/10/17 1726 Imaging Last Impressions Shoulder X-Ray 05/10/17 0000 Signed Impressions: Service Date/Time: Wednesday, May 10, 2017 08:51 - CONCLUSION: Intact postsurgical changes for technique. Norma Damon MD Chest CT 05/09/17 1457 Signed Impressions: Service Date/Time: May 17:20 - CONCLUSION: 1. Right middle lobe nodule with additional scarring in the lungs, repeat noncontrast chest CT is suggested in 6 months as a conservative follow up. 2. Left proximal humeral fracture. Norma Damon MD Upper Extremity CT 05/09/17 0000 Signed Impressions: Service Date/Time: May 19:23 - CONCLUSION: 1. Comminuted and displaced fracture through the left humeral head. 2. No associated dislocation. Pedro Pablo Mc MD Lumbar Spine X-Ray 05/09/17 0000 Signed Impressions: Service Date/Time: , May 09, 2017 15:31 - CONCLUSION: Chronic changes. Norma Damon MD Elbow X-Ray 05/09/17 0000 Signed Impressions: Service Date/Time: May 15:48 - CONCLUSION: Unremarkable study. Norma Damon MD Objective Remarks GENERAL: This is an elderly male patient in no apparent distress. Awake and alert. Appears comfortable. SKIN: No rashes. Cool and dry. Left shoulder in postoperative dressing and sling. HEAD: Atraumatic. Normocephalic. EYES: EOMI. No scleral icterus. No injection or drainage. ENT: Nose without bleeding, purulent drainage. Airway patent. NECK: Trachea midline. Supple. CARDIOVASCULAR: Regular rate and rhythm without murmurs, gallops, or rubs. RESPIRATORY: Clear to auscultation anteriorly. Breath sounds equal bilaterally. No wheezes, rales, or rhonchi. GASTROINTESTINAL: Abdomen soft, non-tender, nondistended. MUSCULOSKELETAL: Extremities without clubbing, cyanosis, or edema. No calf tenderness. LUE in sling. ROM not tested. N/V intact distally. NEUROLOGICAL: Awake and alert. Motor and sensory grossly within normal limits. Normal speech. A/P Problem List: (1) Closed fracture of left proximal humerus ICD Code: S42.202A - Unspecified fracture of upper end of left humerus, initial encounter for closed fracture Status: Acute (2) CAD (coronary artery disease) ICD Code: I25.10 - Atherosclerotic heart disease of [place] coronary artery without angina pectoris Status: Chronic (3) COPD (chronic obstructive pulmonary disease) ICD Code: J44.9 - Chronic obstructive pulmonary disease, unspecified Status: Chronic (4) Acute renal insufficiency ICD Code: N28.9 - Disorder of kidney and ureter, unspecified Status: Acute Assessment and Plan 76 y/o thrown from a horse on 05/06/17 presents with left proximal humerus fracture for possible surgical repair: Left proximal humeral fracture - Orthopedic surgeon managing, discharge for today. - Left proximal humerus fracture status post ORIF POD 1 - Nonweight bearing left upper extremity - Pendulum swings only - Daily dressing changes with home health care. Change of dressing prior to discharge. Xeroform and Primapore - Follow-up with Dr. Griffin or [place] in 2 weeks CAD s/p stenting AAA s/p repair HTN - BP controlled - no complaints of chest pain - continue home medications Verapamil ER and Atacand HCT - resume ASA and Plavix Acute renal insufficiency, improved. - creatinine 1.12 today. - unknown baseline Anemia - likely 2/2 anemia of acute blood loss from injury - repeat labs in outpatient setting. Right middle lobe nodule - incidental finding. Recommend repeat noncontrast chest CT in 6 mos Discussed with patient, and Dr. Miller Discharge Planning Discharge with [facility] today. Attending Statement The exam, history, and the medical decision-making described in the above note were completed with the assistance of the mid-level provider. I reviewed and agree with the findings presented. I attest that I had a [id number] encounter with the patient on the same day, and personally performed and documented my assessment and findings in the medical record. Discharge patient to home Condition on discharge: Improved HH Diet as tolerated Ad [place] activity Rx written:see [facility] rec Follow-up with primary care physician and ortho Problem Qualifiers (1) Closed fracture of left proximal humerus: Qualified Codes: S42.292A - Other displaced fracture of upper end of left humerus, initial encounter for closed fracture Veronica Carl May 11, 2017 10:01 Rich Miller MD May 11, 2017 10:21
[2017-05-11] MEDS ORDERED: ZOFR4TAB PO (10:08)
[2017-05-11] MEDS: CALCIUM CARBONATE 500 MG CHEWABLE TAB PO PRN (12:02)
[2017-05-11 12:45] VITALS: BP 164/78; PULSE 86; RESP 17; TEMP 98.9; O2SAT 94
== END 2017-05-11 14:02 | disposition home or self-care (01) ==
LOC: NEPD 13:09 → INTOOBSV 19:06 → NEDA 19:06 → N06B 22:00
PROVIDERS: ADMIT Hospitalist; ATTEND Hospitalist
DX: S42.202A Unspecified fracture of upper end of left humerus, initial encounter for closed fracture (principal); I71.4 Abdominal aortic aneurysm, without rupture; I25.10 Atherosclerotic heart disease of native coronary artery without angina pectoris; I10 Essential (primary) hypertension; D62 Acute posthemorrhagic anemia; N28.9 Disorder of kidney and ureter, unspecified; J44.9 Chronic obstructive pulmonary disease, unspecified; E78.5 Hyperlipidemia, unspecified; M70.32 Other bursitis of elbow, left elbow; Z95.5 Presence of coronary angioplasty implant and graft; Z87.891 Personal history of nicotine dependence; Z79.82 Long term (current) use of aspirin; Z79.02 Long term (current) use of antithrombotics/antiplatelets; Y93.52 Activity, horseback riding; V80.010A Animal-rider injured by fall from or being thrown from horse in noncollision accident, initial encounter
CPT/HCPCS: 01630; 23615; 71260; 72100; 73030; 73070; 73200; 76000; 80048; 85025; 85610; 85730; 86850; 86900; 86901; 86920; 90471; 90714; 93005; 94150; 94667; 96361; 96365; 96366; 96375; 97110; 97167; 97535; 99285; C1713; G0378; J0131; J1580; J2270; J2370; J2405; J2710; J3010; J3370; J7050; Q9967

== ENCOUNTER 2018-01-03 10:48 | Observation (INO) | END 2018-01-04 18:47 | disposition home health service (06) | DX: S42.202K Unspecified fracture of upper end of left humerus, subsequent encounter for fracture with nonunion (principal); J44.0 Chronic obstructive pulmonary disease with (acute) lower respiratory infection; J98.11 Atelectasis; J43.8 Other emphysema; I10 Essential (primary) hypertension; I25.10 Atherosclerotic heart disease of native coronary artery without angina pectoris; Z87.891 Personal history of nicotine dependence; Z88.1 Allergy status to other antibiotic agents; Z95.5 Presence of coronary angioplasty implant and graft | CPT/HCPCS: 01630; 24435; 71045; 71260; 73060; 76000; 80048; 85025; 87015; 87070; 87102; 87116; 87205; 87206; 93005; 96361; 96365; 96376; 97166; C1713; G0378; G8987; G8988; J0131; J0690; J1100; J1580; J2175; J2270; J2370; J2405; J2710; J3010; J3370; J7120; Q9967 ==